=== PATIENT | male | born 1980 | race African-American/Black ===

== ENCOUNTER 2018-06-01 04:50 | Emergency (ER) | payer MEDICAID ==
[~2018-06-01] VITALS: Ht 180.3 cm; Wt 80.0 kg
[2018-06-01 05:00] VITALS: BP 115/77
== END 2018-06-01 06:20 | disposition home or self-care (01) ==
LOC: ED 06:00
DX: S76.212A Strain of adductor muscle, fascia and tendon of left thigh, initial encounter (principal); S76.211A Strain of adductor muscle, fascia and tendon of right thigh, initial encounter; X58.XXXA Exposure to other specified factors, initial encounter; Y93.89 Activity, other specified; Y99.8 Other external cause status; Y92.89 Other specified places as the place of occurrence of the external cause
CPT/HCPCS: 99283